=== PATIENT | female | born 1990 | race Hispanic/Latino ===

== ENCOUNTER 2017-12-04 11:54 | Emergency (ER) | payer MEDICAID ==
[2017-12-04 12:25] VITALS: BMI 27.9
[2017-12-04] MEDS ORDERED: Betamethasone Soluspan 30 mg/5mL Inj Susp IM ONE (13:00)
[2017-12-04 18:48] VITALS: BP 118/67; PULSE 78; RESP 18; TEMP 97.7; O2SAT 98
--- NOTE | 2017-12-04 21:12 | OBHP ---
Datetime: 12/04/2017 12:58 IP Adm Impression: No Active Labor IP Admit Plan: Observation/Evaluation; Discharge home Admit Comment, IP Provider: Chief complaint-rhogam injection and celestone OBHx: 6 induced abortions January 2009, , 4lbs 3 oz infant at 28 weeks. 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 Hx of left Ovarian cyst Denies hx of STI's,abnormal Pap smears. Allergies: NKDA Meds: None, Has not picked up vitamins Medical Hx: Denies Surgical Hx: Denies Social Hx: Admits to 1PPD, Denies Alcohol use, admit to occasional marijuana use (Quit 3-4 months ago) Family Hx: Ovarian CA (Grandmother-) VS: BP-120/67, HR-74 Gen: AAOx3 CV: RRR Lungs: CTA B/L Abd: Soft, gravid, no fundal tenderness, Ext: No clubbing, cyanosis, edema; no calf tenderness EFM: 140bmp, moderate variability, + accels, TOCO: NEG CTX A/P 27 year old 33w1d with hx of delivery was sent by primary OBGYN for Rhogam inject ion 1. Afebrile/Stable 2. Category 1 tracing, Non-Stress Test Reactive. 3. RhoGam ordered. 4. Celesto ordered. Patient asked to return tomorrow for 2nd dose. 4. Plan discussed with Attending (Dr. Rivera) 5. Patient given RhoGam, precautions given Patient examined.agree with resident exam,a ssessment and plan Pelvic Type - PN: Adequate Extremities - PN: Normal Abdomen - PN: Normal Back - PN: Not Done Breast - PN: Not Done Lungs - PN: Normal Heart - PN: Normal Thyroid - PN: Normal Neurologic - PN: Normal HEENT - PN: Normal General - PN: Normal FHR - Baseline A Provider: 140 EGA AdmitDate IP: 33.1 IP Chief Complaint: Maternal discomfort NICHD Variability Prov Fetus A: Moderate 6-25bpm NICHD Accel Fetus A IP Provider: 15X15 FHR Category Provider Fetus A: Category I NICHD Decel Fetus A IP Provider: None Genitourinary Exam: Not Done DTRs - PN: Normal
== END 2017-12-04 13:40 | disposition home or self-care (01) ==
LOC: C.EROB 11:54
DX: Z23 Encounter for immunization (principal); Z3A.33 33 weeks gestation of pregnancy
CPT/HCPCS: 96372; 99283; J0702

== ENCOUNTER 2017-12-05 13:14 | Emergency (ER) | payer MEDICAID ==
[2017-12-04 12:25] VITALS: BMI 27.9
[2017-12-05] MEDS ORDERED: Betamethasone Soluspan 30 mg/5mL Inj Susp IM ONE (13:45)
[2017-12-05 18:36] VITALS: BP 119/71; PULSE 87; RESP 18; TEMP 97; O2SAT 97
--- NOTE | 2017-12-05 20:06 | OBHP ---
Datetime: 12/05/2017 13:28 Admit Comment, IP Provider: Chief complaint-rhogam injection and celestone Pt is a 27 year old female at 33 weeks and 2 days with NELDA December per ultrasound done approximately 3 weeks ago, presenting to L_D today to receive a Celesto injection. Pt states nam t she is feeling well overall. Pt reports she is feeling movements. Denies contractions, vagina l bleeding and rupture of membranes. Pt denies taking vitamins during this . OBHx: 6 induced abortions January 2009, , 4lbs 3 oz infant at 28 weeks - male [employer] Hx: LMP: 04/16/2018 [facility]: 09/25/4-5 days Denies Hx of Fibroids. Hx of left Ovarian cyst Denies hx of STI's,abnormal Pap smears. Last pap smear approximately 2-3 years ago. Allergies: NKDA Meds: None, Has not picked up vitamins Medical Hx: Denies Surgical Hx: Denies Social Hx: Admits to 1PPD currently for last 12 years, Denies Alcohol use, admit to occasional mar ijuana use (Quit 3-4 weeks ago). 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 Family Hx: Ovarian CA ( Paternal Grandmother-), Father - Heart disease. VS: BP-131/90, HR-108, TEMP - 98.5 Gen: AAOx3 CV: +S1, +S2, RRR Lungs: CTA B/L Abd: Soft, gravid, no fundal tenderness Ext: No clubbing, cyanosis, edema; no calf tenderness EFM: 146bmp, moderate variability, + accels, TOCO: NEG CTX A/P 27 year old 33w2d with hx of delivery was sent by primary OBGYN for Celesto injec tion. 1. Afebrile/Stable 2. Category 1 tracing, Non-Stress Test Reactive. 3. Celesto ordered. 4. Plan discussed with Attending (Dr. Rivera) 5. precautions given Patient discussed with Dr. Vika Arce, PGY1 Abdomen - PN: Normal Lungs - PN: Normal Heart - PN: Normal Thyroid - PN: Normal HEENT - PN: Normal General - PN: Normal
== END 2017-12-05 14:27 | disposition home or self-care (01) ==
LOC: C.EROB 13:14
DX: Z23 Encounter for immunization (principal); Z3A.33 33 weeks gestation of pregnancy
CPT/HCPCS: 96372; 99283; J0702

== ENCOUNTER 2018-01-12 09:25 | Inpatient (IN) | payer MEDICAID ==
[2018-01-12] MEDS ORDERED: Sodium Citrate/Citric Acid 15 ml Sol PO ONE (10:16)
--- NOTE | 2018-01-12 10:38 | OBHP ---
Datetime: 01/12/2018 10:25 IP Adm Impression: Term, intrauterine IP Admit Plan: Admit to unit Admit Comment, IP Provider: 28 yo EDC 01/22 by LMp _ 16wk us presents w/ c/o ctxs since 1am. denies srom, bleeding, decreased fm. ob hx in current preg sig for late care, tobacco use + thc in urine pobxh: ptd @ 28wks; eabx6 pmhx: denies pshx: denies nkda medic: pnv; feso4 I: 38.5wks in labor late pnc tobacco use P: admit EGA AdmitDate IP: 38.5 IP Chief Complaint: Uterine contractions
[2018-01-12] MEDS: Lactated Ringer's 1,000 ML IV SCH ×2 (10:41→11:24)
[2018-01-12 11:38] LABS: BASO # 0.1 K/uL (0.0-0.2); BASO % 0.3 % (0.0-2.0); EOS # 0.1 K/uL (0.0-0.7); EOS % 0.4 % (0.0-4.0); HEMOGLOBIN 11.1 g/dL (11.0-16.0); LYMPH # 2.1 K/uL (1.0-4.3); LYMPH % 11.6 % (20.0-40.0); MEAN CELL VOLUME 85.9 fL (81.0-99.0); MEAN CORPUSCULAR HEMOGLOBIN 29.4 pg (27.0-31.0); MEAN CORPUSCULAR HGB CONC 34.2 g/dL (33.0-37.0); MEAN PLATELET VOLUME 9.5 fL (7.2-11.7); MONO # 1.2 K/uL (0.0-0.8); MONO % 6.3 % (0.0-10.0); NEUT # 14.8 K/uL (1.8-7.0); NEUT % 81.4 % (50.0-75.0); RBC 3.78 Mil/uL (3.80-5.20); RED CELL DISTRIBUTION WIDTH 13.9 % (11.5-14.5); WHITE BLOOD COUNT 18.3 K/uL (4.8-10.8)
[2018-01-12 11:52] LABS: SQUAMOUS EPITHIAL 18 /hpf (0-5); URINE BACTERIA OCC (<OCC); URINE BILIRUBIN NEGATIVE (NEGATIVE); URINE BLOOD 2+ (NEGATIVE); URINE CLARITY Hazy (Clear); URINE COLOR Yellow (YELLOW); URINE GLUCOSE (UA) NORMAL (Normal); URINE LEUKOCYTE ESTERASE 3+ Leu/uL (Negative); URINE PROTEIN 1+ mg/dL (NEGATIVE); URINE UROBILINOGEN NORMAL mg/dL (0.2-1.0)
[2018-01-12 12:07] LABS: BARBITURATES, UR NEGATIVE (NEGATIVE); BENZODIAZEPINES, UR NEGATIVE (NEGATIVE); OPIATES, UR NEGATIVE (NEGATIVE); PHENCYCLIDINE, UR NEGATIVE (NEGATIVE)
[2018-01-12] MEDS ORDERED: Penicillin G 5 Million Unit Vial IVPB STA (13:06)
[2018-01-12] MEDS ORDERED: Penicillin G Potassium 5 MU in Dextrose 5% In Water 50 ML IV ONE (13:30)
[2018-01-12] MEDS ORDERED: Sodium Citrate/Citric Acid 15 ml Sol ONE (13:31)
[2018-01-12] MEDS ORDERED: Oxytocin 20 units in LR 2,000 ML IV ONE (13:31)
[2018-01-12] MEDS ORDERED: cefOXitin IV 2 gm in Saline 2 GM/50 ML BAG IVPB ONE (13:33)
[2018-01-12] MEDS ORDERED: cefOXitin IV 2 gm in Dextrose 2 GM/50 ML BAG IVPB ONE (13:41)
--- NOTE | 2018-01-12 13:59 | OBADHP ---
Datetime: 01/12/2018 10:25 Admit Comment, IP Provider: 28 yo EDC 01/22 by LMp _ 16wk us presents w/ c/o ctxs since 1am. denies srom, bleeding, decreased fm. ob hx in current preg sig for late care, tobacco use + thc in urine pobxh: ptd @ 28wks; eabx6 pmhx: denies pshx: denies nkda medic: pnv; feso4 I: 38.5wks in labor late pnc tobacco use P: admit IP Chief Complaint: Uterine contractions EGA AdmitDate IP: 39.0 IP Adm Impression: Term, intrauterine IP Admit Plan: Admit to unit Datetime: 12/05/2017 13:28 Abdomen - PN: Normal Lungs - PN: Normal Heart - PN: Normal Thyroid - PN: Normal HEENT - PN: Normal General - PN: Normal Datetime: 12/04/2017 12:58 Pelvic Type - PN: Adequate Extremities - PN: Normal Back - PN: Not Done Breast - PN: Not Done Neurologic - PN: Normal FHR - Baseline A Provider: 140 NICHD Variability Prov Fetus A: Moderate 6-25bpm NICHD Accel Fetus A IP Provider: 15X15 FHR Category Provider Fetus A: Category I NICHD Decel Fetus A IP Provider: None Genitourinary Exam: Not Done DTRs - PN: Normal
[2018-01-12] MEDS ORDERED: Hydrocodone/Acetaminophen 5 mg /300 mg Tab PO PRN (16:42)
[2018-01-12] MEDS: cefOXitin IV 1 gm in Dextrose 1 GM/50 ML BAG IVPB SCH ×2 (17:36→20:51)
--- NOTE | 2018-01-12 18:00 | OBDS ---
DELIVERY PERSONNEL Delivery Doctor: Marquis Rivera MD Scrub Nurse: Lori Bush OBT Breakdown Man: Stephanie Larson RN Anesthesiologist: Dr Guan MATERNAL INFORMATION Delivery Anesthesia: Spinal Medications in Delivery: pitocin 20 units in 1000 ml LR Estimated Blood Loss (ml): 600 Placenta Cultured: Yes Maternal Complications: None RN Comments: primary 39.0 weeks for nonreassuring NST-liveborn male infant; mother and inf ant in stable condition Provider Comments: preop dx: 39wks; nonreactive nst; inadequate pnc; +tobacco use in preg postop dx: same procedure: LFTCD surgeon: hill jackson 1st asst: dr vickers 2nd asst: med stud harry mil spinal anesth dr guan ebl 600cc findings: clear amniotic fluid; LOT; viable male;9_9; wt 6lb; cord gas 7.27 neon to nursery pt to rr plac to path LABOR SUMMARY EDC: 01/19/2018 00:00 No. Babies in Womb: 1 LABOR INFORMATION Group B Beta Strep: Negative (Annotations: 01/08/18) MEMBRANES Membranes Rupture Method: Artificial Rupture of Membranes: 01/12/2018 14:57 Length of Rupture (hrs): 0.02 Amniotic Fluid Color: Clear Amniotic Fluid Amount: Moderate Amniotic Fluid Odor: None STAGES OF LABOR Stage 3 hrs: 0 Stage 3 min: 1 CSECTION DELIVERY Primary Indication: nonreassuring NST CSection Urgency: Non Elective CSection Incidence: Primary Labor: Labor Elective: Nonelective CSection Incision: Lower Uterine Transverse BABY A INFORMATION Delivery Date/Time: 01/12/2018 14:58 Method of Delivery: Born in Route : No : N/A Forceps: N/A Vacuum Extraction: N/A Shoulder Dystocia : No SHOULDER DYSTOCIA BABY A Delivery Date/Time: 01/12/2018 14:58 PRESENTATION/POSITION BABY A Presentation: Cephalic Cephalic Presentation: Vertex Vertex Position: Left Occipital Transverse Breech Presentation: N/A PLACENTA INFORMATION BABY A Placenta Delivery Time : 01/12/2018 14:59 Placenta Method of Delivery: Expressed Placenta Status: Delivered SCORES BABY A Heart Rate 1 min: >100 bpm Resp Effort 1 min: Good Cry Reflex Irritability 1 min: Cough or Sneeze or Pulls Away Muscle Tone 1 min: Active Motion Color 1 min: Body [place], Extremities Blue Resuscitation Effort 1 min: Tactile Stimulation SCORE 1 MIN: 9 Heart Rate 5 min: >100 bpm Resp Effort 5 min: Good Cry Reflex Irritability 5 min: Cough or Sneeze or Pulls Away Muscle Tone 5 min: Active Motion Color 5 min: Body [place], Extremities Blue Resuscitation Effort 5 min: N/A SCORE 5 MIN: 9 INFANT INFORMATION BABY A Gestational Age at Delivery: 39.0 Gestational Status: Term Infant Outcome : Liveborn Condition : Stable Infant Sex: Male IDENTIFICATION/MEDS BABY A ID Band Number: [id number] ID Band Location: Left Leg; Left Arm Sensor Applied: Yes Sensor Number: [id number] Sensor Location : Cord Clamp WEIGHT/LENGTH BABY A Infant Birthweight (gms): 2710 Weight (lb): 6 Weight (oz): 0 Length Inches: 18.50 Infant Length cms: 47.0 CORD INFORMATION BABY A No. Cord Vessels: 3 Nuchal Cord : N/A Cord pH Baby Venous: 7.27 Cord Blood Taken: Yes Suction: Mouth; Nose ASSESSMENT BABY A Complications: None Physical Findings at Delivery: Frisian Spots Physical Findings Other: 3 cm slovak spot on left thigh Infant Respirations: Appears Normal Planer Offbearer/ALS Called : No Care By: Dr Houston Transferred To: Remains with Mother
--- NOTE | 2018-01-12 18:03 | OBPN ---
Datetime: 01/12/2018 13:58 FHR - Baseline A Provider: 130 IP Progress Note Comment: s: no new c/o o: 3cm/90/-1 no change urine cx from off +ecol i:39 wks w/resolved NR NST and Minimal Variability uti tobacco use late care p: d/w pt primary given decreased variability and pt agreed NICHD Variability Prov Fetus A: min to moder Datetime: 12/04/2017 12:58 NICHD Accel Fetus A IP Provider: 15X15 FHR Category Provider Fetus A: Category I NICHD Decel Fetus A IP Provider: None
--- NOTE | 2018-01-12 18:05 | OBPPN ---
Datetime: 01/12/2018 18:02 PP Progress Note Prov: Postop s: pain well controlled. no c/o p: rx given for percocet 5/325 on dc home. pt denies h/o illicit prescripiton drug useor addiction . she was advised that percocet can be addicting and to use sparingly.
[2018-01-12] MEDS: Simethicone 80 mg Chewtab PO SCH (22:51)
[2018-01-13] MEDS: cefOXitin IV 1 gm in Dextrose 1 GM/50 ML BAG IVPB SCH ×2 (00:35→04:53)
[2018-01-13] MEDS: Lactated Ringer's 1,000 ML IV SCH ×2 (02:30→10:30)
--- NOTE | 2018-01-13 06:12 | OP ---
PROCEDURE DATE: PREOPERATIVE DIAGNOSES: 1. 38.6 weeks . 2. Nonreactive nonreassuring stress test. 3. Inadequate and late care. 4. Tobacco use in . POSTOPERATIVE DIAGNOSES: 1. 38.6 weeks . 2. Nonreactive nonreassuring stress test. 3. Inadequate and late care. 4. Tobacco use in . PROCEDURE: Primary low transverse section. SURGEON: Kee Rivera MD MILKER MACHINE: Artemio Slois MD SECOND INSTALLMENT ACCOUNT CHECKER: Medical student, Jac Moss. TYPE OF ANESTHESIA: Spinal ANESTHESIOLOGIST: Dr. Ely. ESTIMATED BLOOD LOSS: 600 mL. COMPLICATIONS: None. FINDINGS: Show clear amniotic fluid, male infant in left occiput transverse presentation with weight of 6 pounds, Apgars of 9 and 9 and cord gas was 7.25. DESTINATION: to nursery. The patient to recovery room in satisfactory condition. PATHOLOGY: Placenta. INDICATIONS: The patient is a 27-year-old female, 8, para 0-1-6-1 who presented at 38.6 weeks with complaints of contractions. She was noted to be in latent stage labor and after continued observation, the NST was noted to be nonreassuring with minimal variability, intermittent accelerations. Due to the patient's nonreassuring NST as well as her late and inadequate care, primary section was discussed with the patient with the thought of intolerance to active labor. Risks, benefits, and indications discussed with the patient and she agreed with the planned procedure. DESCRIPTION OF PROCEDURE: The patient was taken back to the operating room where she underwent her spinal anesthesia without complications. She was then placed in dorsal supine position with a leftward tilt and prepped and draped in a routine sterile fashion. A Pfannenstiel skin incision was made approximately 2 cm above the symphysis pubis. The incision was extended bilaterally. The incision was then brought down to the underlying rectus fascia which was incised in the midline and extended bilaterally. The inferior rectus fascial edge was grasped with Lindsey and the underlying rectus muscle was dissected off. Same procedure was performed along the superior rectus fascial edge. The peritoneum was identified, tented upward, and incised superiorly and inferiorly. The bladder plate was placed and a bladder flap created using sharp and blunt dissection. A lower uterine transverse incision was made with the knife, and the incision was extended bilaterally with the bandage scissor. The intrauterine cavity was entered bluntly. Clear amniotic fluid was noted. The was noted to be in left occiput transverse presentation. was delivered in routine fashion. The mouth and nares was suctioned. The cord was clamped and cut, and the baby was handed off to the awaiting encephalographer. A was obtained to sent for cord gas. Cord blood was collected. Placenta was delivered spontaneously and intact. The uterus was exteriorized and cleared of all clots and debris. The uterine incision was reapproximated with 1 Chromic in a running locked fashion. Good hemostasis was achieved. The abdomen was irrigated and cleared of all clots and debris. The uterus was returned to the abdomen and the pelvic cavity was cleared of all clots and debris. The uterine incision was reinspected and good hemostasis was confirmed. The peritoneum was reapproximated with 2-0 plain in a running manner. The rectus muscle was reapproximated with 2-0 plain in a simple interrupted fashion. The abdomen was again reinspected. Good hemostasis confirmed. The fascia was reapproximated with 0 Vicryl in a running fashion. The wound was inspected, good hemostasis was confirmed. The subcutaneous tissue was reapproximated with 2-0 plain in a simple interrupted fashion. The skin was reapproximated with subcuticular 4-0 Vicryl. All sponge, lap and instrument counts were correct x4. Of note, Dr. Solis was my first surgical elastic knitter hand frame and he assisted in surgical exposure, surgical hemostasis, delivery of the baby, and surgical closure. His assistance was essential to the performance of the procedure. Kee Rivera MD
[2018-01-13] MEDS: Oxycodone/Acetaminophen 5/325 mg Tab PO PRN ×3 (06:15→20:01)
[2018-01-13] MEDS: Tmp-Smz 800 mg-160 mg DS Tab PO SCH ×2 (09:11→20:44)
[2018-01-13] MEDS: Lactobacillus Acidophilus 500 MU Cap PO SCH ×2 (09:11→17:23)
[2018-01-13] MEDS: Simethicone 80 mg Chewtab PO SCH ×4 (09:11→21:07)
[2018-01-13] MEDS: Prenatal Multivit/Folic Acid/Iron Tab PO SCH (09:11)
[2018-01-13 11:34] LABS: BASO % 0.2 % (0.0-2.0); EOS # 0.1 K/uL (0.0-0.7); EOS % 0.7 % (0.0-4.0); HEMOGLOBIN 10.2 g/dL (11.0-16.0); LYMPH # 2.5 K/uL (1.0-4.3); LYMPH % 12.3 % (20.0-40.0); MEAN CELL VOLUME 86.2 fL (81.0-99.0); MEAN CORPUSCULAR HGB CONC 33.6 g/dL (33.0-37.0); MEAN PLATELET VOLUME 9.2 fL (7.2-11.7); MONO # 1.4 K/uL (0.0-0.8); NEUT # 16.1 K/uL (1.8-7.0); NEUT % 79.8 % (50.0-75.0); NRBC % 0.1 % (0.0-2.0); RBC 3.54 Mil/uL (3.80-5.20); RED CELL DISTRIBUTION WIDTH 14.3 % (11.5-14.5); WHITE BLOOD COUNT 20.1 K/uL (4.8-10.8)
[2018-01-14] MEDS: Oxycodone/Acetaminophen 5/325 mg Tab PO PRN ×4 (01:47→21:10)
[2018-01-14] MEDS: Tmp-Smz 800 mg-160 mg DS Tab PO SCH ×2 (08:38→21:05)
[2018-01-14] MEDS: Prenatal Multivit/Folic Acid/Iron Tab PO SCH (09:26)
[2018-01-14] MEDS: Simethicone 80 mg Chewtab PO SCH ×4 (09:26→21:06)
[2018-01-14] MEDS: Lactobacillus Acidophilus 500 MU Cap PO SCH ×2 (09:29→17:18)
[2018-01-15 08:15] VITALS: BP 116/78; PULSE 100; RESP 20; TEMP 98.6; O2SAT 98
--- NOTE | 2018-01-15 08:35 | OBPPN ---
Datetime: 01/15/2018 08:27 PP Pain Prov: Within normal limits PP Nausea Prov: Denies PP Flatus Prov: Yes PP BM Prov: Yes PP Breasts Prov: Normal PP Heart Prov: Normal PP Lungs Prov: Normal PP Abdomen/Uterus Prov: Normal PP Lochia Prov: Normal PP Vulva/Perineum Prov: Not Done PP CVA Tenderness Prov: Normal PP Extremities Prov: Normal PP C/S Incision Prov: Normal PP Progress Prov: Normal PP Comments Phys Exam Prov: Breasts: no cracked nipples Abdomen: Soft. Non distended. Fundus firm, mobile, mildly tender, 2 FB below umbilicus. Incision w ith subcuticular closure - clean, dry and intact. Mild lochia rubra Extremities: no calf tenderness, trace pedal edema bilaterally All other systems reviewed and are negative PP Impression Prov: Normal progression PP Plan Prov: Discharge PP Progress Note Prov: Asked by Dr. Rivera to see patietn for discharge: patient received in room 453, halted at this time in anticipation of circumcision to be performed. Patient repo rts strong uterine contractions with , and mild incisional pain - relived with pain meds P.E.: as above. WD in NAD. Awake, alert, oriented to time, person and place. Pleasant and cooperat rajesh. Assessment: POD#3, 27 y.o. P2, S/P primary C/S for NRFHRT. Afebrile, vital signs stable. Clinical ly stable. PlnaL 1) Discharge home 2) See full discharge instructions Vital Signs Provider PP: Reviewed; Within Normal Limits
[2018-01-15] MEDS: Simethicone 80 mg Chewtab PO SCH ×2 (09:42→14:28)
[2018-01-15] MEDS: Prenatal Multivit/Folic Acid/Iron Tab PO SCH (09:42)
[2018-01-15] MEDS: Tmp-Smz 800 mg-160 mg DS Tab PO SCH (09:44)
[2018-01-15] MEDS: Lactobacillus Acidophilus 500 MU Cap PO SCH (09:44)
== END 2018-01-15 14:40 | disposition home or self-care (01) | DRG 371 ==
LOC: C.EROB 09:25 → C.4D 10:09 → C.4M 18:40
PROVIDERS: ADMIT Obstetrics & Gynecology; ATTEND Obstetrics & Gynecology
PROC: 10D00Z1 Extraction of Products of Conception, Low, Open Approach (ICD-10-PCS; principal; 2018-01-12)
DX: O32.2XX0 Maternal care for transverse and oblique lie, not applicable or unspecified (principal); O76 Abnormality in fetal heart rate and rhythm complicating labor and delivery; O99.334 Smoking (tobacco) complicating childbirth; F17.200 Nicotine dependence, unspecified, uncomplicated; Z3A.39 39 weeks gestation of pregnancy; Z3A.38 38 weeks gestation of pregnancy; Z37.0 Single live birth